=== PATIENT | male | born 1985 | race Caucasian/White ===

== ENCOUNTER 2024-02-23 05:10 | Emergency (ER) | payer OTHER ==
[2024-02-23] MEDS ORDERED: Gentamicin 0.3% Ophth Soln 5 ML Bottle EYEBOTH ONE (05:11)
== END 2024-02-23 06:21 | disposition home or self-care (01) ==
LOC: FB.ED 05:10
DX: T26.91XA Corrosion of right eye and adnexa, part unspecified, initial encounter (principal); Y99.0 Civilian activity done for income or pay
CPT/HCPCS: 99283; A9270-GY